=== PATIENT | female | born 1990 | race Caucasian/White ===

== ENCOUNTER 2016-04-30 09:55 | Emergency (ER) | payer OTHER ==
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
--- NOTE | 2016-04-30 16:57 | ED MAR SUMMARY ---
..... Medication Administration Record [facility] [address], [place] [id number] Patient: JEFF PEDERSEN Visit ID: [id number] 26y, F Weight: 87.9 kg Height/Length: 58 in BMI: 40.5 ALLERGIES: Novacaine
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
--- NOTE | 2016-04-30 16:57 | ED MAR SUMMARY ---
..... Medication Administration Record [facility] [address], [place] [id number] Patient: JFEF PEDERSEN Visit ID: [id number] 26y, F Weight: 87.9 kg Height/Length: 58 in BMI: 40.5 ALLERGIES: Novacaine
--- NOTE | 2016-04-30 16:57 | ED ORDER SUMMARY ---
..... Patient: JEFF PEDERSEN OrderSheet [facility] VisitID: [id number] [place] [address] 26y, F Registration Date/Time: 04/30/2016 ORDER SHEET Weight: 87.9 kg (stated) Allergies: Novacaine GENERAL ORDERS: Hand 3 or 4V Right Urgent (10:30 04/30/2016 Jaja Ventura) (Ack 10:38 Yoon) (16:56 Lucio R.N.) Forearm Left Urgent (10:30 04/30/2016 Jaja Ventura) (Ack 10:38 Yoon) (16:56 Lucio R.N.) MEDICATION ORDERS: Toradol IM 60 mg (NOW) (10:30 04/30/2016 Jaja Ventura) (Ack 10:33 Lucio R.N.) (Cancelled: Patient [id number] Lucio R.N.) IV FLUIDS: ORDER SHEET NOTES: [Electronically signed by Jase Stout Dr. (12:46 04/30/2016)] [Electronically signed by Peg Jay R.N. (16:56 04/30/2016)] [Electronically locked/signed by Peg Jay R.N. (16:56 04/30/2016)]
--- NOTE | 2016-04-30 16:57 | ED MED RECONCILIATION SUMMARY ---
Patient: JEFF PEDERSEN Medication Reconciliation Report [facility] VisitID: [id number] [address] [place] [address] 26y, F Registration Date/Time: 04/30/2016 Weight: 87.9 kg Height/Length: 58 in. BMI: 40.5 ALLERGIES: Novacaine The patient's Home Medications are listed below: CONTINUE TAKING THE FOLLOWING MEDICATIONS: Acetaminophen Oral The source(s) of the original Home Medication information: Not obtained. The following Medications were given to the patient in the Emergency Department: None. The following Medications were prescribed to the patient: Diclofenac 50 mg tablets: take 1 tablet orally every 8 hours as needed for pain or stiffness. Dispense thirty (30). No refill. -- Jase Stout Dr.
--- NOTE | 2016-04-30 16:57 | ED MED RECONCILIATION SUMMARY ---
Patient: JEFF PEDERSEN Medication Reconciliation Report [facility] VisitID: [id number] [address] [place] [address] 26y, F Registration Date/Time: 04/30/2016 Weight: 87.9 kg Height/Length: 58 in. BMI: 40.5 ALLERGIES: Novacaine The patient's Home Medications are listed below: CONTINUE TAKING THE FOLLOWING MEDICATIONS: Acetaminophen Oral The source(s) of the original Home Medication information: Not obtained. The following Medications were given to the patient in the Emergency Department: None. The following Medications were prescribed to the patient: Diclofenac 50 mg tablets: take 1 tablet orally every 8 hours as needed for pain or stiffness. Dispense thirty (30). No refill. -- Jase Stout Dr.
--- NOTE | 2016-04-30 16:57 | ED ORDER SUMMARY ---
..... Patient: JEFF PEDERSEN OrderSheet [facility] VisitID: [id number] [place] [address] 26y, F Registration Date/Time: 04/30/2016 ORDER SHEET Weight: 87.9 kg (stated) Allergies: Novacaine GENERAL ORDERS: Hand 3 or 4V Right Urgent (10:30 04/30/2016 Jaja Ventura) (Ack 10:38 Yoon) (16:56 Lucio R.N.) Forearm Left Urgent (10:30 04/30/2016 Jaja Ventura) (Ack 10:38 Yoon) (16:56 Lucio R.N.) MEDICATION ORDERS: Toradol IM 60 mg (NOW) (10:30 04/30/2016 Jaja Ventura) (Ack 10:33 Lucio R.N.) (Cancelled: Patient [id number] Lucio R.N.) IV FLUIDS: ORDER SHEET NOTES: [Electronically signed by Jase Stout Dr. (12:46 04/30/2016)] [Electronically signed by Peg Jay R.N. (16:56 04/30/2016)] [Electronically locked/signed by Peg Jay R.N. (16:56 04/30/2016)]
== END 2016-04-30 12:00 | disposition home or self-care (01) ==
LOC: ED SRH 09:55
DX: S00.93XA Contusion of unspecified part of head, initial encounter (principal); S60.221A Contusion of right hand, initial encounter; S50.12XA Contusion of left forearm, initial encounter; Y04.0XXA Assault by unarmed brawl or fight, initial encounter; Y92.89 Other specified places as the place of occurrence of the external cause; Z88.5 Allergy status to narcotic agent; Z79.1 Long term (current) use of non-steroidal anti-inflammatories (NSAID)